=== PATIENT | male | born 1985 | race African-American/Black ===

== ENCOUNTER 2016-09-07 17:54 | Emergency (ER) | payer OTHER ==
[~2016-09-07] VITALS: Ht 180.3 cm; Wt 77.1 kg
--- NOTE | 2016-09-07 18:02 | NUR ---
pt to er bed 12. presents w/ 3cm chin laceration s/p trip and fall and hit a metal object in the floor. pt denies ko. not utd to tetanus shot. awaiting md jerez.
[2016-09-07] MEDS ORDERED: TDAP [DIPH/PERTUSSIS/TET] 0.5 ML VIAL IM ONE ×2 (18:10→18:30)
--- NOTE | 2016-09-07 18:12 | NUR ---
linus jordan at bedside for eval.
[2016-09-07] MEDS ORDERED: LIDOCAINE 0.5%-EPI 1:200,000 50 ML VIAL ONE (18:22)
--- NOTE | 2016-09-07 18:28 | NUR ---
linus gas line servicer back at bedside for lac repair.
--- NOTE | 2016-09-07 19:05 | NUR ---
wound care provided. pt d/c in stable condition.
[2016-09-07 19:10] VITALS: BP 128/66
== END 2016-09-07 19:11 | disposition home or self-care (01) ==
LOC: ER 17:57
DX: S01.81XA Laceration without foreign body of other part of head, initial encounter (principal); F17.200 Nicotine dependence, unspecified, uncomplicated; W01.0XXA Fall on same level from slipping, tripping and stumbling without subsequent striking against object, initial encounter; Y92.89 Other specified places as the place of occurrence of the external cause; Y93.89 Activity, other specified; Y99.8 Other external cause status
CPT/HCPCS: 90715; A6402; J3490

== ENCOUNTER 2016-09-16 11:13 | Emergency (ER) | payer OTHER ==
[~2016-09-16] VITALS: Ht 180.3 cm; Wt 78.0 kg
[2016-09-16 11:22] VITALS: BP 142/77
== END 2016-09-16 11:54 | disposition home or self-care (01) ==
LOC: ER 11:14
DX: S01.81XD Laceration without foreign body of other part of head, subsequent encounter (principal)
CPT/HCPCS: 99281; A4606; Z7610; Z7502

== ENCOUNTER 2017-05-19 10:49 | Emergency (ER) | payer OTHER ==
[~2017-05-19] VITALS: Ht 182.9 cm; Wt 79.4 kg
[2017-05-19 10:53] VITALS: BP 148/81
[2017-05-19] MEDS ORDERED: ACETAMINOPHEN ES 500 MG TABLET ONE (11:13)
[2017-05-19] MEDS ORDERED: ONDANSETRON 4 MG TAB.RAPDIS ONE (11:14)
[2017-05-19] MEDS ORDERED: ONDANSETRON 4 MG TAB.RAPDIS SL ONE (12:00)
[2017-05-19] MEDS ORDERED: ACETAMINOPHEN 325 MG TABLET PO ONE (12:00)
== END 2017-05-19 11:57 | disposition home or self-care (01) ==
LOC: ER 10:50
DX: R86.0 Abnormal level of enzymes in specimens from male genital organs (principal); R11.2 Nausea with vomiting, unspecified; F17.200 Nicotine dependence, unspecified, uncomplicated; Z91.013 Allergy to seafood
CPT/HCPCS: A4606; Q0162; Z7610

== ENCOUNTER 2017-10-01 08:30 | Emergency (ER) | payer SELFPAY ==
[~2017-10-01] VITALS: Ht 182.9 cm; Wt 81.6 kg
[2017-10-01 08:36] VITALS: BP 160/93
[2017-10-01] MEDS ORDERED: CHLORDIAZEPOXIDE HCL 25 MG CAPSULE PO ONE (09:30)
[2017-10-01] MEDS ORDERED: CHLORDIAZEPOXIDE HCL 25 MG CAPSULE ONE (09:35)
[2017-10-01 09:57] LABS: BASOPHILS % (AUTO) 0.2 % (0.0-2.0); CALCIUM, SERUM 9.5 mg/dL (8.5-10.1); CREATININE 1.2 mg/dL (0.6-1.3); EOSINOPHILS % (AUTO) 1.6 % (0.0-6.0); HEMATOCRIT 45 % (39-51); HEMOGLOBIN 15.2 g/dL (13.5-17.5); LYMPHOCYTES # (AUTO) 1.3 /CMM (0.8-4.8); LYMPHOCYTES % (AUTO) 24.3 % (20.0-44.0); MEAN CORPUSCULAR HEMOGLOBIN 31 PG (26.0-33.0); MEAN CORPUSCULAR HGB CONC 34 g/dl (31.0-36.0); MEAN CORPUSCULAR VOLUME 90 fL (80-96); MONOCYTES # (AUTO) 0.5 /CMM (0.1-1.30); MONOCYTES % (AUTO) 9.4 % (2.0-12.0); NEUTROPHILS # (AUTO) 3.4 /CMM (1.8-8.9); NEUTROPHILS % (AUTO) 64.5 % (43.0-81.0); PLATELET COUNT (AUTO) 237 /CMM (150-450); POTASSIUM 3.7 mmol/L (3.5-5.1); RDW COEFFICIENT OF VARIATION 13.5 (11.5-15.0); RED BLOOD CELL COUNT(AUTO) 4.99 MIL/uL (4.5-6.0); WHITE BLOOD COUNT (AUTO) 5.3 K/uL (4.3-11.0)
== END 2017-10-01 11:12 | disposition home or self-care (01) ==
LOC: ER 08:34
DX: F41.9 Anxiety disorder, unspecified (principal); F10.10 Alcohol abuse, uncomplicated; F17.200 Nicotine dependence, unspecified, uncomplicated; Z91.013 Allergy to seafood
CPT/HCPCS: 36415; 80048; 84443; 85025; 99284; A4606; Z7610